=== PATIENT | male | born 1975 | race Caucasian/White ===

== ENCOUNTER 2021-11-07 17:30 | Emergency (ER) | payer OTHER ==
[~2021-11-07] VITALS: Ht 170.2 cm; Wt 88.9 kg
[2021-11-07 17:41] VITALS: BP 133/76
--- NOTE | 2021-11-07 18:05 | NUR ---
46/M PRESENTS TO ED WITH C/O RIGHT ARM PAIN S/P HURTING HIMSELF LIFTING A DOOR AT WORK ON SATURDAY. ROM LIMITED DUE TO PAIN, DENIES TAKING MEDS FOR PAIN. REPORTS BEING SEEN AT CLINIC REFERRED BY WORK BUT STATES THE CLINIC REFERRED HIM TO ED FOR FURTHER EVAL.
[2021-11-07] MEDS ORDERED: IBUP-2213 PO (19:51)
--- NOTE | 2021-11-07 20:01 | NUR ---
PT PLACED IN RIGHT ARM SLING.
[2021-11-07 22:02] VITALS: BP 121/79
== END 2021-11-07 20:02 | disposition home or self-care (01) ==
LOC: MED 17:30
DX: M79.631 Pain in right forearm (principal); R20.0 Anesthesia of skin; R20.2 Paresthesia of skin; Z79.899 Other long term (current) drug therapy
CPT/HCPCS: 73090; 99283